=== PATIENT | female | born 1970 | race Caucasian/White ===

== ENCOUNTER 2016-05-11 06:34 | Day surgery (SDC) | payer OTHER ==
[~2016-05-11] VITALS: Ht 160 cm; Wt 65.0 kg
[~2016-05-11 06:34] MED LIST: IBUPROFEN200 M1 PO; NOHOMEMEDS; RITALIN20 MG PO
[2016-05-11 06:49] VITALS: BP 115/77
[2016-05-11 07:34] LABS: ANION GAP 8 MEQ/L (2-14); CHLORIDE 104 MEQ/L (99-109); POTASSIUM 3.5 MEQ/L (3.7-5.4); SAMPLE HEMOLYSIS CHECK 0; SAMPLE ICTERIC CHECK 0; SAMPLE LIPEMIA CHECK 0; SODIUM 138 MEQ/L (136-147); TOTAL BILIRUBIN 0.4 MG/DL (0.0-1.0)
[2016-05-11 07:40] LABS: ALKALINE PHOSPHATASE 78 IU/L (3-129); GFR ESTIMATE (CALCULATED) > 59 mL/min/; GLUCOSE 95 mg/dL (70-99); UREA NITROGEN (BUN) 17 mg/dL (9-23)
[2016-05-11 10:15] VITALS: BP 119/64
[2016-05-11 10:59] VITALS: BP 106/65
== END 2016-05-11 11:25 | disposition home or self-care (01) ==
LOC: SDC 06:34
PROVIDERS: Obstetrics & Gynecology Gynecology
PROC: 0U5B8ZZ Destruction of Endometrium, Via Natural or Artificial Opening Endoscopic (ICD-10-PCS; principal; 2016-05-11)
PROC: 0UDB8ZZ Extraction of Endometrium, Via Natural or Artificial Opening Endoscopic (ICD-10-PCS; principal; 2016-05-11)
DX: N92.1 Excessive and frequent menstruation with irregular cycle (principal); N94.6 Dysmenorrhea, unspecified; F17.200 Nicotine dependence, unspecified, uncomplicated; M19.90 Unspecified osteoarthritis, unspecified site
CPT/HCPCS: 80053; 88305; J0131; J0690; J1100; J1885; J2175; J2250; J2405; J2765; J3010